=== PATIENT | female | born 1990 | race Caucasian/White ===

== ENCOUNTER 2018-11-17 17:15 | Emergency (ER) | payer OTHER ==
[2018-11-17 17:50] VITALS: BP 111/88
[2018-11-17] MEDS ORDERED: Ondansetron ODT TAB* 4 MG PO ONE (18:30)
--- NOTE | 2018-11-17 18:30 | UC ---
Nausea/Vomiting/Diarrhea HPI - HPI Summary HPI Summary: 28-year-old female with history of Coumadin intolerance presents with complaints of sudden onset of stomach cramping and nausea after accidentally consuming a regular pizza. No vomiting but states she did have an episode of loose stool after arriving at urgent care. Denies fever, chills, swelling of lips, tongue, or throat, difficulty breathing, abdominal pain, back or flank pain, dysuria, frequency, urgency, or hematuria. - History of Current Complaint Chief Complaint: UCGI Stated Complaint: ABD PAIN, VOMITING, DIARRHEA Time Seen by Provider: 11/17/18 17:51 Hx Obtained From: Patient Hx Last Menstrual Period: 11/06/18 Pain Intensity: 0 - Allergies/Home Medications Allergies/Adverse Reactions: Allergies Allergy/AdvReac Type Severity Reaction Status Date / Time Sulfa (Sulfonamide Allergy Intermediate Rash Verified 11/17/18 17:39 Antibiotics) Home Medications: Home Medications ALPRAZolam [Xanax] 1 tab DAILY PRN 11/17/18 [History Confirmed 11/17/18] ALPRAZolam [Xanax] 2 mg BID 11/17/18 [History Confirmed 11/17/18] Desogestrel-Ethinyl Estradiol [Isibloom 28 Day Tablet] 1 tab QPM 11/17/18 [ History Confirmed 11/17/18] Ferrous Sulfate TAB* 1 tab DAILY 11/17/18 [History Confirmed 11/17/18] Lisdexamfetamine (NF) [Vyvanse (NF)] 1 tab DAILY 11/17/18 [History Confirmed ] NIFEdipine CAP* [Procardia CAP*] 30 mg QPM 11/17/18 [History Confirmed 11/17/18] Venlafaxine EXT RELEASE CAP(NF [Effexor Xr CAP 225 MG (NF)] 1 tab DAILY [History Confirmed 11/17/18] traZODone TAB* [Desyrel TAB*] 1 tab BEDTIME 11/17/18 [History Confirmed 11/17/18 ] PMH/Surg Hx/FS Hx/Imm Hx GI/ History: Other - Gluten intolerance Psychological History: Anxiety - Surgical History Surgical History: None - Family History Known Family History: Positive: Non-Contributory - Social History Occupation: Employed Full-time Lives: With Family Alcohol Use: Occasionally Substance Use Type: None Smoking Status (MU): Never Smoked Tobacco Review of Systems All Other Systems Reviewed And Are Negative: Yes Constitutional: Negative: Fever, Chills ENT: Positive: Negative Respiratory: Positive: Negative Cardiovascular: Positive: Negative Gastrointestinal: Positive: Abdominal Pain, Nausea. Negative: Vomiting, Diarrhea Genitourinary: Positive: Negative Musculoskeletal: Positive: Negative Neurological: Positive: Negative Is Patient Immunocompromised?: No Physical Exam - Summary Physical Exam Summary: GENERAL APPEARANCE: Well developed, well nourished, alert and cooperative, and appears to be in no acute distress. EYES: Conjunctiva clear. No drainage. PERRL, EOM intact. Vision is grossly intact. EARS: External auditory canals and tympanic membranes clear, hearing grossly intact. NOSE: No nasal discharge. THROAT: Pharynx normal. No tonsilar inflammation, swelling, exudate, or lesions. Uvula midline. Oral cavity normal. Airway patent. NECK: Neck supple, non-tender without lymphadenopathy. CARDIAC: Normal S1 and S2. No S3, S4 or murmurs. Rhythm is regular. There is no peripheral edema, cyanosis or pallor. Extremities are warm and well perfused. Capillary refill is less than 2 seconds. Peripheral pulses intact. LUNGS: Clear to auscultation without rales, rhonchi, wheezing or diminished breath sounds. ABDOMEN: Positive bowel sounds. Soft, nondistended. Mild epigastric discomfort without guarding or rebound. No masses or hepatosplenomegally. MUSKULOSKELETAL: ROM intact to all extremities. No joint erythema or tenderness. Normal muscular development. Normal gait. SKIN: Skin normal color, texture and turgor with no lesions or eruptions. Triage Information Reviewed: Yes Vital Signs: Initial Vital Signs Temp 98.3 F 11/17/18 17:42 Pulse 94 11/17/18 17:42 Resp 16 11/17/18 17:42 BP 111/88 11/17/18 17:42 Pulse Ox 100 11/17/18 17:42 Vital Signs Reviewed: Yes Naus/Vom/Diarrhea Course/Dx - Course Course Of Treatment: 28-year-old female with history of Coumadin intolerance presents with complaints of sudden onset of stomach cramping and nausea after accidentally consuming a regular pizza. No vomiting but states she did have an episode of loose stool after arriving at urgent care. Denies fever, chills, swelling of lips, tongue, or throat, difficulty breathing, abdominal pain, back or flank pain, dysuria, frequency, urgency, or hematuria. Afebrile. Vital signs stable. Patient had a soft nondistended abdomen with some mild epigastric tenderness without rebound or guarding, normal bowel sounds, and otherwise unremarkable exam. Discussed with the patient that her symptoms are most likely related to her gluten intolerance. She was given a dose of ondansetron 4 mg in the clinic and provided a prescription for ondansetron 4 mg every 6 hours as needed for nausea or vomiting. She is to follow-up with her primary care provider in 2-3 days if symptoms are not improving. Anticipatory guidance and warning symptoms reviewed with patient. Verbalized understanding and agrees with plan of care. - Differential Dx/Diagnosis Differential Diagnoses - Female: Gastroenteritis (Viral), Gastroenteritis ( Bacterial), Vomiting, Diarrhea, Colitis, Gastritis, Other - Gluten intolerance Provider Diagnosis: Nausea, History of gluten intolerance Condition At Discharge: Stable Discharge ED - Sign-Out/Discharge Documenting (check all that apply): Patient Departure All imaging exams completed and their final reports reviewed: No Studies - Discharge Plan Condition: Stable Disposition: HOME Prescriptions: Ondansetron [Ondansetron Odt] 4 mg PO Q6HR PRN #8 tab.rapdis PRN Reason: Nausea/Vomiting Patient Education Materials: Acute Nausea and Vomiting (ED) Referrals: Xavier oRberson MD [Primary Care Provider] - 2 Days Additional Instructions: Your symptoms are likely a related to your gluten intolerance especially with the sudden onset after consuming gluten-containing food. Take ondansetron 4 mg 1 tablet every 6 hours as needed for nausea and vomiting. You were given a dose in the clinic. Drink plenty of fluids. Try to drink small amounts frequently to avoid filling your stomach to full which can cause vomiting. If you are still having vomiting, start with a clear liquid diet including soup broths, Jello, popsicles, and alvarez-ishan with carbonation stirred out of it. You may then advance to a bland diet including saltine crackers, toast, bananas , rice, and applesauce. Then return to a gluten-free diet as tolerated. Follow up here or with your primary care provider in 2-3 days if symptoms persist. Seek immediate medical attention in the emergency room if you develop fever greater than 100.5 F, have severe abdominal pain, persistent vomiting, blood in your vomit or stool, or any worsening of symptoms. - Billing Disposition and Condition Condition: STABLE Disposition: Home
== END 2018-11-17 18:41 | disposition home or self-care (01) ==
LOC: UCCORT 17:15
DX: R11.0 Nausea (principal); K90.41 Non-celiac gluten sensitivity; Z88.2 Allergy status to sulfonamides; F41.9 Anxiety disorder, unspecified
CPT/HCPCS: 99202; A9270-GY; G0463